=== PATIENT | male | born 1940 | race Caucasian/White ===

== ENCOUNTER 2019-06-15 09:57 | Observation (INO) | payer MEDICARE ==
[2019-06-12 12:19] LABS: BASOPHILS # (AUTO) 0.1 (0.0-0.1); BASOPHILS % 0.5 % (0.0-1.0); EOSINOPHILS # (AUTO) 0.4 (0.0-0.4); EOSINOPHILS % 3.6 % (0.0-6.0); HEMATOCRIT 41.5 % (38.2-49.6); HEMOGLOBIN 13.5 g/dL (14.0-18.0); LYMPHOCYTES # (AUTO) 1.9 (1.0-3.2); LYMPHOCYTES % 18.4 % (18.0-39.1); MEAN CORPUSCULAR HEMOGLOBIN 28.5 pg (28-32); MEAN CORPUSCULAR HGB CONC 32.5 g/dL (31-35); MEAN CORPUSCULAR VOLUME 87.6 fL (81-99); NEUTROPHILS # (AUTO) 6.9 (2.1-6.9); NEUTROPHILS % 67.2 % (38.7-80.0); PLATELET COUNT 229 x10e3/uL (140-360); RED BLOOD COUNT 4.74 x10e6/uL (4.3-5.7); RED CELL DISTRIBUTION WIDTH 12.9 % (11.7-14.4)
[2019-06-12 12:36] LABS: INR 0.92; PROTHROMBIN TIME 12.8 seconds (11.9-14.5)
[2019-06-12 12:37] LABS: PARTIAL THROMBOPLASTIN TIME 30.5 seconds (23.8-35.5)
[2019-06-12 12:43] LABS: ALANINE AMINOTRANSFERASE 20 IU/L (0-55); ALBUMIN 3.7 g/dL (3.5-5.0); ALBUMIN/GLOBULIN RATIO 1.2 (0.8-2.0); ALKALINE PHOSPHATASE 128 IU/L (40-150); ANION GAP 14.3 mmol/L (8-16); BLOOD UREA NITROGEN 20 mg/dL (7-26); BUN/CREATININE RATIO 22 (6-25); CALCIUM 10.1 mg/dL (8.4-10.2); CARBON DIOXIDE 27 mmol/L (22-29); CHLORIDE 104 mmol/L (98-107); CREATININE, SERUM 0.93 mg/dL (0.72-1.25); EST GLOMERULAR FILTRATION RATE > 60 ML/MIN (60-); GLUCOSE 90 mg/dL (74-118); POTASSIUM 4.3 mmol/L (3.5-5.1); SODIUM 141 mmol/L (136-145)
--- NOTE | 2019-06-12 14:54 | Diagnostic Imaging Report ---
EXAMINATION: CHEST 2 VIEWS INDICATION: Pre-operative COMPARISON: None FINDINGS: LINES/TUBES:None LUNGS:The lungs are well-inflated. No focal consolidation or pulmonary edema. PLEURA:No pleural effusion or pneumothorax. MEDIASTINUM:The cardiomediastinal silhouette appears normal in size and shape. BONES/SOFT TISSUES:No acute osseous injury. Sternotomy wires intact. Degenerative changes of the visualized spine. ABDOMEN:No free air under the diaphragm. IMPRESSION: No focal pneumonia or pulmonary edema. Signed by: Sneha Sharpe MD on 06/12/2019 2:50 PM
[~2019-06-15] VITALS: Ht 177.8 cm; Wt 88.0 kg
[~2019-06-15 09:57] MED LIST: ASPIRIN81 MG PO; ATORVASTATIN CA20 MG PO; FLOMAX0.4 MG PO; GARLIC1 EAC1 PO; LEVOTHYROXINE50 MCG PO; LISINOPRIL2.5 MG PO; MAGNESIUM GLUCO30 MG PO; MULTI-VITAMIN1 EACH PO; POTASSIUM99 MG PO
--- OUTSIDE RECORDS SUMMARY | 2019-06-15 09:59 | XMS REPORT ---
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 Allergies, Adverse Reactions, Alerts This patient has no known allergies or adverse reactions. Medications This patient has no known medications. Results Test Description Test Time Test Comments Text Results Atomic Results Result Comments CHEST 2 VIEWS 2019-06-12 14:49:00 [place] [address] Patient Name: ANTHONY KNAPP MR #: [id number] : 1940 Age/Sex: 78/M Req #: [id number] [facility] Physician: Ordered by: EMMY CHAVEZ MD Report #: [id number] Location: OR Room/Bed: Procedure: [id number] DX/CHEST 2 VIEWS Exam Date: 06/12/19 Exam Time: 1245 REPORT STATUS: Signed EXAMINATION: CHEST 2 VIEWS INDICATION: Pre-operative COMPARISON: None FINDINGS: LINES/TUBES:None LUNGS:The lungs are well-inflated. No focal consolidation or pulmonary edema. PLEURA:No pleural effusion or pneumothorax. MEDIASTINUM:The cardiomediastinal silhouette appears normal in size and shape. BONES/SOFT TISSUES:No acute osseous injury. Sternotomy wires intact. Degenerative changes of the visualized spine. ABDOMEN:No free air under the diaphragm. IMPRESSION: No focal pneumonia or pulmonary edema. Signed by: Wilfredo Sharpe MD on 06/12/2019 2:50 PM Dictated By: WILFREDO SHARPE MD 145 Transcribed By: JAMES on 06/12/191449 COPY TO: EMMY CHAVEZ MD
--- OUTSIDE RECORDS SUMMARY | 2019-06-15 10:00 | XMS REPORT ---
Author Author Admin, [place] Organization Unknown Address Unknown Phone Unavailable PROBLEMS Condition Status Date Provider Notes Preoperative exam active [place] Yazidism [place] Coronary arteriosclerosis active [place] [facility] [place] Hydrocele, left active Ch[place]wuemeapril [facility] [place] Bladder cancer, trigone active [place] [facility] [place] Knee pain, chronic active Selma Ge Reza Strain of muscle and tendon of front wall of thorax, initial encounter active Roger Krnathi Vaccine against flu/influenza completed - Alvaromita Kranthi Rotator cuff tear, right active Madhumita Kranthi irreapairable BPH (benign prostatic hypertrophy) active [place] [facility] [place] Shoulder joint pain, right active Madhumita Kranthi injury 15 years ago, tore muscle and cannot use the joint BMI 25.0-25.9 active Madhumita Kranthi Passive smoke exposure active Madhumita Kranthi Overweight active Rosmery Efe Paridavid Prostate Cancer, Screening completed - Alvaromita Kranthi Actinic keratosis active Rosmery Efe Pariani Vaccination for strep pneumonia with Prevnar 13 completed - Alvaromita Kranthi Leukocytosis active Rosmery Efe Pariani Abnormal urine finding completed - Rosmery Efe Pariani Tinnitus active Rosmery Efe Pariani Poor dentition active Rosmery Efe Pariani Colon Cancer Screening completed - Roger Crisostomo Flu vaccine completed - Alvaromita Kranthi Nocturia active Rosmerybrandon Wilks Sherrydavid ~ q hr CAD S/P CABG active Rosmery Efe Pariani 2 3 v Screening for glaucoma active Rosmery Keyish Silviano Lower urinary tract symptoms - male active Rosmery Efe Powellani 09/08 IPPS=25 Preventive health care completed - Nolana Kranthi Hypothyroidism active Billie Angelica Hypercholesterolemia active Billie Angelica HTN (Hypertension) active Billiebrandon Dominguez ENCOUNTERS Date Type Provider Location Encounter Diagnosis - Ambulatory Encounter Xenia Roblesabdelmar [facility] [place] [facility] Encounter Xenia Guo [place] [facility] [place] [facility] UNK - Ambulatory Encounter Xenia Roblesabuicaden Guo [place] [facility] UNK - Ambulatory Encounter Xenia Roblesabuicaden Roblesabuife [facility] UNK - Ambulatory Encounter Donna [place] Xenia Guo [place] Nel Bailey [facility] BPH (benign prostatic hypertrophy)Preoperative exam - Ambulatory Encounter Janessa Mcmillan [facility] UNK - [facility] Bladder cancer, trigoneHydrocele, leftCoronary arteriosclerosis - Ambulatory Encounter [place] [facility] - Ambulatory Encounter [place] [facility] UNK - Ambulatory Encounter [place] [facility] UNK - Ambulatory Encounter Selma Luma Reza Selma Luma Reza [facility] UNK - Ambulatory Encounter Selma Luma Reza Selma Luma Reza [facility] UNK - Ambulatory Encounter Fax Status [facility] UNK - Ambulatory Encounter [facility] - Ambulatory Encounter Fax Status [facility] UNK - Ambulatory Encounter Selma Luma Reza Selma Luma Reza Karina Alfred [facility] UNK - Ambulatory Encounter Selma Luma Reza Selma Luma Reza [facility] UNK - Ambulatory Encounter [facility] - Ambulatory Encounter [facility] - Ambulatory Encounter Fax Status [facility] UNK - Ambulatory Encounter Selma Luma Reza Selma Luma Reza [facility] UNK - Ambulatory Encounter Selma Luma Reza [facility] [facility], [facility] - Ambulatory Encounter Selma Luma Reza [facility] Lilly Juddto [facility] UNK - Ambulatory Encounter Madhumita Kranthi Madhumita Kranthi [facility] UNK - Ambulatory Encounter Madhumita Kranthi Rajeshhumita Kranthi [facility] UNK - Ambulatory Encounter Madhumita Kranthi Rajeshhumita Kranthi [facility] UNK - Ambulatory Encounter Madhumita Kranthi Madhumita Kranthi Carmen Chou [facility] UNK - Ambulatory Encounter Karina Majorkins [facility] UNK - Ambulatory Encounter Madhumita Kranthi Madhumita Kranthi [facility] UNK - Ambulatory Encounter Madhumita Kranthi Madhumita Kranthi [facility] UNK - Ambulatory Encounter Madhumita Kranthi Madhumita Kranthi Tianna Snow [facility] Preventive health careFlu vaccineColon Cancer ScreeningVaccination for strep pneumonia with Prevnar 13Prostate Cancer, ScreeningVaccine against flu/influenzaStrain of muscle and tendon of front wall of thorax, initial encounter - Ambulatory Encounter Fax Status [facility] UNK - Ambulatory Encounter Fax Status [facility] UNK - Ambulatory Encounter Fax Status [facility] UNK - Ambulatory Encounter Madhumita Kranthi Madhumita Kranthi Yoly Zavala Selma Luma Reza Selma Luma Reza Nash Valdez [facility] UNK - Ambulatory Encounter Madhumita Kranthi Madhumita Kranthi [facility] UNK - Ambulatory Encounter Madhumita Kranthi Madhumita Kranthi [facility] UNK - Ambulatory Encounter Madhumita Kranthi Madhumita Kranthi [facility] UNK - Ambulatory Encounter Madhumita Kranthi Madhumita Kranthi Brenda Chou [facility] Vaccine against flu/influenza - Ambulatory Encounter Karina Chapman [facility] UNK - Ambulatory Encounter Ana M Chapman Madhumita Kranthi Madhumita Kranthi [facility] UNK - [facility]ulatory [facility] - [facility] En[facility] - Ambulatory Encounter Madhumita Kranthi Madhumita Kranthi Yumiko Quinn [facility] UNK - Ambulatory Encounter Madhumita Kranthi Madhumita Kranthi Cotton [facility] UNK - Ambulatory Encounter Karina Chapman [facility] UNK - Ambulatory Encounter Jacki ColladoAdherdina [facility] UNK - Ambulatory Encounter Madhumita Kranthi Madhumita Kranthi [facility] UNK - Ambulatory Encounter Jacki Pierce Med[facility]herence [facility] UNK - Ambulatory Encounter Yumiko Campos MedAdherence [place] Yazidism [place] Williamkwuedarien Guo [place] [facility] UNK - Ambulatory Encounter Yumiko Dumont [facility] UNK - Ambulatory Encounter Madhumita Kranthi Madettamita Kranthi [facility] UNK - Ambulatory Encounter Fax Status [facility] UNK - Ambulatory Encounter Madhumita Kranthi Alvaromita Kranthi [facility] UNK - Ambulatory Encounter Madhumita Kranthi Madhumita Kranthi [facility] UNK - Ambulatory Encounter Fax Status [facility] UNK - Ambulatory Encounter Fax Status [facility] UNK - Ambulatory Encounter Fax Status [facility] UNK - Ambulatory Encounter Jacki Pierce MedAdherence [facility] UNK - Ambulatory Encounter Madhumita Kranthi Madhumita Kranthi [facility] UNK - Ambulatory Encounter Fax Status [facility] UNK - Ambulatory Encounter Fax Status [facility] UNK - Ambulatory Encounter Fax Status [facility] UNK - Ambulatory Encounter Madhumita Kranthi Alvaromita Kranthi [facility] Rotator cuff tear, right - Ambulatory Encounter Alvaromitbrandon Crisostomo Alvaromita Kranthi [facility] UNK - Ambulatory Encounter Roger Crisostomo Alvaromita Kranthi Yoly Khoury [facility] UNK - Ambulatory Encounter Karina Chapman [facility] UNK - Ambulatory Encounter Jacki Pierce MedAdherence [facility] UNK - Ambulatory Encounter Jacki Pierce MedAdherence [facility] UNK - Ambulatory Encounter [facility] - [facility] En[facility] - Ambulatory Encounter Rajeshelda Kranthi Alvaromita Kranthi [facility] UNK - Ambulatory Encounter Roger Crisostomo Alvaromita Kranthi Khoury [facility] Passive smoke exposureBMI 25.0-25.9Shoulder joint pain, rightBPH (benign prostatic hypertrophy) - Ambulatory Encounter Rosmery Efe Pariani [facility] Efe [facility] - Ambulatory Encounter Alvaromita Kranthi Alvaromita Kranthi [facility] UNK - Ambulatory Encounter Billie Johnmita Kranthi [facility] UNK - Ambulatory Encounter Karina Chapman [facility] UNK - Ambulatory Encounter Fax Status [facility] UNK - Ambulatory Encounter Fax Status [facility] UNK - Ambulatory Encounter Fax Status [facility] UNK - Ambulatory Encounter Rosmery Efe Pariani Rosmery Efe Silviano LinkLogjenifer Crisostomo [facility] UNK - Ambulatory Encounter Fax Status [facility] UNK - Ambulatory Encounter Fax Status [facility] UNK - Ambulatory Encounter Fax Status [facility] UNK - Ambulatory Encounter Fax Status [facility] UNK - Ambulatory Encounter Fax Status [facility] UNK - Ambulatory Encounter Fax Status [facility] UNK - Ambulatory Encounter Rosmery Efe Pariani Rosmery Efe Shore [facility] UNK - Ambulatory Encounter Rosmery Efe Pariani Rosmery Efe Paridavid [facility] UNK - Ambulatory Encounter Solisbrandon Ragsdale [facility] UNK - Ambulatory Encounter Solis Ragsdale [facility] UNK - Ambulatory Encounter Rosmery Efe Pariani Rosmery Efe Pariani Yumiko Khoury [facility] Abnormal urine findingLeukocytosisVaccination for strep pneumonia with Prevnar 13Actinic keratosisProstate Cancer, ScreeningOverweight - Ambulatory Encounter Rosmery Efe Pariani Rosmery Efe Pariani [facility] UNK - Ambulatory Encounter Rosmery Efe Pariani Rosmery Efe Pariani [facility] UNK - Ambulatory Encounter Rosmery Efe Pariani Rosmery Efe Pariani [facility] UNK - Ambulatory Encounter Zoilamaico Werner [facility] UNK - Ambulatory Encounter Rosmery Efe Pariani Rosmery Efe Pariani [facility] UNK - Ambulatory Encounter Rosmery Efe Pariani Rosmery Efe Pariani [facility] UNK - Ambulatory Encounter Rosmery Efe Pariani Rosmery Efe Pariani [facility] UNK - Ambulatory Encounter Fax Status [facility] UNK - Ambulatory Encounter Fax Status [facility] UNK - Ambulatory Encounter Fax Status [facility] UNK - Ambulatory Encounter Fax Status [facility] UNK - Ambulatory Encounter Fax Status [facility] UNK - Ambulatory Encounter Fax Status [facility] UNK - Ambulatory Encounter Fax Status [facility] UNK - Ambulatory Encounter Fax Status [facility] UNK - Ambulatory Encounter Fax Status [facility] UNK - Ambulatory Encounter Rosmery Efe Pariani Rosmery Efe Pariani Gisselle Perry [facility] Abnormal urine finding - Ambulatory Encounter Rosmery Morales [facility] - Ambulatory Encounter Rosmery [facility] - Ambulatory Encounter Rosmery Shore Yumiko Khoury [facility] HTN (Hypertension)HypercholesterolemiaHypothyroidismPreventive health careLower urinary tract symptoms - maleScreening for glaucomaCAD S/P CABGNocturiaFlu vaccineColon Cancer ScreeningPoor dentitionTinnitus - Ambulatory Encounter Betina [facility] - Ambulatory Encounter Betinamel [facility] - Ambulatory Encounter Janessa [facility] VITAL SIGNS No Information Available Allergies No Known Allergy Information REASON FOR REFERRAL Start Date - End Date Service - Urology - External - Orthopedics - External - Cardiology - External RESULTS Date Observation Value Provider Reference Range Interpretation Location thyroid stimulating hormone, serum 4.290 u[iU]/mL [facility] 0.450-4.500 " calcium, serum 9.1 mg/dL [facility] 8.6-10.2 " carbon dioxide, venous blood 25 mmol/L [facility] 20-29 " chloride, serum 101 mmol/L [facility] 96-106 " potassium, serum 4.0 mmol/L [facility] 3.5-5.2 " sodium, serum 139 mmol/L [facility] 134-144 " urea nitrogen/creatinine ratio, serum 23 [facility] 10-24 " eGFR if 93 mL/min/((173/100).m2) [facility] >59 " Estimated Glomerular Filtration Rate (calc) 81 mL/min/((173/100).m2) [facility] >59 " creatinine, serum 0.92 mg/dL [facility] 0.76-1.27 " urea nitrogen, blood 21 mg/dL [facility] 8-27 " blood glucose, random 101 mg/dL [facility] 65-99 High thyroxine, serum, free 0.95 ng/dL [facility] 0.82-1.77 " thyroid stimulating hormone, serum 6.890 u[iU]/mL [facility] 0.450-4.500 High " prostate specific antigen 2.2 ng/mL [facility] 0.0-4.0 " immature granulocytes, percentage of total cells, blood 0 % [facility] Not Estab. " basophil count, absolute 0.0 x10E3/uL [facility] 0.0-0.2 " Eosinophil Absolute Count 0.5 X10E3/UL [facility] 0.0-0.4 High " monocyte count, blood, automated 1.2 X10E3/UL [facility] 0.1-0.9 High " lymphocyte count, blood, automated 2.4 X10E3/UL [facility] 0.7-3.1 " Absolute Neutrophils 6.4 X10E3/UL [facility] 1.4-7.0 " basophils as percent of blood leukocytes 0 % [facility] Not Estab. " eosinophils as percent of blood leukocytes 5 % [facility] Not Estab. " monocytes as percent of blood leukocytes 11 % [facility] Not Estab. " lymphocytes as percent of blood leukocytes 23 % [facility] Not Estab. " neutrophils as percent of blood leukocytes 61 % [facility] Not Estab. " platelet count 231 X10E3/UL [facility] 150-379 " red blood cell distribution width 14.1 % [facility] 12.3-15.4 " mean corpuscular hemoglobin concentration, RBC 33.6 G/DL [facility] 31.5-35.7 " mean corpuscular hemoglobin, RBC 28.5 pg [facility] 26.6-33.0 " mean corpuscular volume, RBC 85 fL [facility] 79-97 " hematocrit, blood 43.1 % [facility] 37.5-51.0 " hemoglobin, blood 14.5 g/dL [facility] 13.0-17.7 " erythrocyte (RBC) count 5.08 X10E6/UL [facility] 4.14-5.80 " leukocyte count, blood 10.6 X10E3/UL [facility] 3.4-10.8 thyroid stimulating hormone, serum 4.470 u[iU]/mL [facility] 0.450-4.500 " LDL cholesterol, serum 99 mg/dL [facility] 0-99 " very low density lipoproteins 30 mg/dL [facility] 5-40 " HDL cholesterol, serum 34 mg/dL [facility] >39 Low " triglyceride, serum, fasting 150 mg/dL [facility] 0-149 High " cholesterol, serum 163 mg/dL [facility] 100-199 " alanine aminotransferase (SGPT), serum 17 1/L [facility] 0-44 " aspartate aminotransferase (SGOT), serum 14 1/L [facility] 0-40 " alkaline phosphatase, serum 87 1/L [facility] 39-117 " bilirubin, serum, total 0.3 mg/dL [facility] 0.0-1.2 " albumin/globulin ratio, serum 1.8 [facility] 1.2-2.2 " globulin, serum 2.3 [facility] 1.5-4.5 " albumin, serum 4.1 g/dL [facility] 3.5-4.8 " protein, total, serum 6.4 g/dL [facility] 6.0-8.5 " calcium, serum 9.3 mg/dL [facility] 8.6-10.2 " carbon dioxide, venous blood 25 mmol/L [facility] 18-29 " chloride, serum 99 mmol/L [facility] 96-106 " potassium, serum 4.6 mmol/L [facility] 3.5-5.2 " sodium, serum 139 mmol/L [facility] 134-144 " urea nitrogen/creatinine ratio, serum 23 [facility] 10-24 " eGFR if 95 mL/min/((173/100).m2) [facility] >59 " Estimated Glomerular Filtration Rate (calc) 82 mL/min/((173/100).m2) [facility] >59 " creatinine, serum 0.91 mg/dL [facility] 0.76-1.27 " urea nitrogen, blood 21 mg/dL [facility] 8-27 " blood glucose, random 85 mg/dL [facility] 65-99 " immature granulocytes, percentage of total cells, blood 0 % [facility] Not Estab. " basophil count, absolute 0.0 x10E3/uL [facility] 0.0-0.2 " Eosinophil Absolute Count 0.5 X10E3/UL [facility] 0.0-0.4 High " monocyte count, blood, automated 1.5 X10E3/UL [facility] 0.1-0.9 High " lymphocyte count, blood, automated 2.5 X10E3/UL [facility] 0.7-3.1 " Absolute Neutrophils 7.3 X10E3/UL [facility] 1.4-7.0 High " basophils as percent of blood leukocytes 0 % [facility] Not Estab. " eosinophils as percent of blood leukocytes 4 % [facility] Not Estab. " monocytes as percent of blood leukocytes 13 % [facility] Not Estab. " lymphocytes as percent of blood leukocytes 21 % [facility] Not Estab. " neutrophils as percent of blood leukocytes 62 % [facility] Not Estab. " platelet count 271 X10E3/UL [facility] 150-379 " red blood cell distribution width 13.9 % [facility] 12.3-15.4 " mean corpuscular hemoglobin concentration, RBC 33.8 G/DL [facility] 31.5-35.7 " mean corpuscular hemoglobin, RBC 28.9 pg [facility] 26.6-33.0 " mean corpuscular volume, RBC 86 fL [facility] 79-97 " hematocrit, blood 39.7 % [facility] 37.5-51.0 " hemoglobin, blood 13.4 g/dL [facility] 13.0-17.7 " erythrocyte (RBC) count 4.64 X10E6/UL [facility] 4.14-5.80 " leukocyte count, blood 11.8 X10E3/UL [facility] 3.4-10.8 High urine culture LESS [facility] " bacteria, urine microscopy Few [facility] None seen/Few " mucus on urinalysis Present [facility] Not Estab. " epithelial cells, urine None seen [facility] 0 - 10 " RBC, Urine 0-2 /hpf [facility] 0 - 2 " WBC urine on microscopy 0-5 /hpf [facility] 0 - 5 " urinalysis, microscopic examination See below: [facility] " nitrate, urine Negative [facility] Negative " urobilinogen, urine, semiquantitative (dipstick) 0.2 [facility] 0.2-1.0 " bilirubin, urine Negative [facility] Negative " ketones, urine, by test strip Negative [facility] Negative " glucose, urine, semiquantitative Negative [facility] Negative " protein, urine, semiquantitative (dipstick) Negative [facility] Negative/Trace " leukocyte esterase, urine, by dipstick 2+ [facility] Negative Abnormal " appearance, urine Clear [facility] Clear " urine color Yellow [facility] Yellow " pH, urine, semiquantitative 6.5 [facility] 5.0-7.5 " specific gravity, body fluid 1.015 [facility] 1.005-1.030 pH, urine, semiquantitative 5.5 Carmen Perry " specific gravity, urine 1.015 Carmen Perry " glucose, urine, semiquantitative negative Carmen Perry " bilirubin, urine negative Carmen Haddads " ketones, urine, by test strip negative Carmen Perry " blood in urine (hemoglobin) by dipstick negative Carmen Haddads " protein, urine, semiquantitative (dipstick) negative Carmen Perry " urobilinogen, urine, semiquantitative (dipstick) negative Carmen Haddads " nitrite, urine, semiquantitative negative Carmen Perry " leukocyte esterase, urine, by dipstick trace Carmen Perry " appearance, urine clear Carmen Perry " urine color yellow Carmen Haddads PSA (prostate specific antigent), recommendation and action 09/15/17 Last digital prostate exam in 2004. Has hx of enlarged prostate in which symptoms seem to be worsening. He would like referral to Urology. Billie Dominguez HISTORY OF IMMUNIZATIONS No Information Available HISTORY OF MEDICATION USE Medication Instructions Dates Provider Comments TIZANIDINE HCL 2 MG ORAL TABLET take 1 tab By Mouth Three Times a Day As Needed muscle spasm Madelda Crisostomo LISINOPRIL 10 MG ORAL TABLET 1 by mouth every day Roger Crisostomo LOSARTAN POTASSIUM 25 MG ORAL TABLET 1 tab By Mouth daily - Rgoer Crisostomo ASPIRIN 81 MG ORAL TABLET take 1 tab By Mouth Every day Rosmery Shore TAMSULOSIN HCL 0.4 MG ORAL CAPSULE take 1 tablet By Mouth Every day for prostate Roger Crisostomo GARLIC TABLET Take one tab By Mouth Every Day Billie Dominguez MULTIVITAMIN MEN ORAL TABLET Take one tab By Mouth Every Day Billie Dominguez VITAMIN D (CHOLECALCIFEROL) CAPSULE Take one cap By Mouth Every Day Billie Dominguez LEVOTHYROXINE 0.025MG TAB TAKE 1 TABLET BY MOUTH EVERY DAY FOR HYPOTHYROIDISM Jacki Stan MedAdherence SIMVASTATIN 10 MG ORAL TABLET Take one tab By Mouth Every Day for cholesterol Billie Dominguez LISINOPRIL 5 MG ORAL TABLET Take one tab By Mouth Every Day for blood pressure. - Roger Crisostomo SOCIAL HISTORY Date Observation Value Provider drug use, illicit Never Nel Bailey " alcohol use Previously Nel Bailey " social history E&M Single. No children. 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 Never been . Not homeless. Born in [facility]. City: [place]. Lives alone in home. Not employed. Retired since 2010. Highest education level: some college. 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 Sex at : Male. Sexual orientation: Heterosexual. Gender identity: Male. Sexually Active: Yes. Denies recent falls or fear of falling. Normal gait w/o assistive device. Feels safe in home. Still drives. Denies memory problems. Denies incontinence. Feels able to manage own affairs. Independent w/ all ADLs & IADLs. Building things Nel Bailey " social history reviewed E&M reviewed today Nel Bailey " sexual orientation Heterosexual Nel Bailey " assessment of health literacy ([employer] [facility] 2014 Standards, 3C10) Adequate Nel Bailey " passive cigarette smoke exposure No Nel Bailey " smoking status never smoker Nel Bailey " Exercise Program Referral T Nel Bailey " Weight Management Counseling Provided T Nel Bailey " Nutrition intervention T Nel Ragsdale Leo time of call 05/30/2019 2:01 PM Rickey Mcmillan social history E&M Single. No children. 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 Never been . Not homeless. Born in [facility]. City: [facility]. Lives alone in home. Not employed. Retired since 2010. Highest education level: some college. 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 Sex at : Male. Sexual orientation: Heterosexual. Gender identity: Male. Sexually Active: Yes. Denies recent falls or fear of falling. Normal gait w/o assistive device. Feels safe in home. Still drives. Denies memory problems. Denies incontinence. Feels able to manage own affairs. Independent w/ all ADLs & IADLs. Building things Nash Valdez " social history reviewed E&M reviewed today Nash Valdez " sexual orientation Heterosexual Nash Valdez " is there any chance that you could be ? No Nash Valdez " assessment of health literacy ([facility] 2014 Standards, 3C10) Adequate Nash Valdez " passive cigarette smoke exposure No Nash Valdez " smoking status never smoker Nash Valdez " Exercise Program Referral T Nash Valdez " Weight Management Counseling Provided Lion Valdez " Nutrition intervention Lion Valdez social history E&M Single. No children. 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 Never been . Not homeless. Born in [facility]. City: [facility]. Lives alone in home. Not employed. Retired since 2010. Highest education level: some college. 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 Sex at : Male. Sexual orientation: Heterosexual. Gender identity: Male. Sexually Active: Yes. Denies recent falls or fear of falling. Normal gait w/o assistive device. Feels safe in home. Still drives. Denies memory problems. Denies incontinence. Feels able to manage own affairs. Independent w/ all ADLs & IADLs. Building things Carmen Chou " social history reviewed E&M reviewed today Carmen Chou " sexual orientation Heterosexual Carmen Chou " assessment of health literacy ([facility] 2014 Standards, 3C10) Adequate Carmen Chou " passive cigarette smoke exposure No Carmen Sainzvez " smoking status never smoker Carmen Tapiaz " Exercise Program Referral T Carmen Chou " Weight Management Counseling Provided T Carmen Chou " Nutrition intervention T Carmen Chou drug use, illicit Never Tianna Snow " alcohol use Previously Tianna Snow " social history E&M Single. No children. 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 Never been . Not homeless. Born in [facility]. City: [facility]. Lives alone in home. Not employed. Retired since 2010. Highest education level: some college. 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 Sex at : Male. Sexual orientation: Heterosexual. Gender identity: Male. Sexually Active: Yes. Denies recent falls or fear of falling. Normal gait w/o assistive device. Feels safe in home. Still drives. Denies memory problems. Denies incontinence. Feels able to manage own affairs. Independent w/ all ADLs & IADLs. Building things Tianna Snow " social history reviewed E&M reviewed today Tianna Snow " sexual orientation Heterosexual Tianna Snow " assessment of health literacy ([facility] 2014 Standards, 3C10) Adequate Tianna Snow " passive cigarette smoke exposure No Tianna Snow " smoking status never smoker Tianna Snow " Exercise Program Referral T Tianna Snow " Weight Management Counseling Provided T Tianna Snow " Nutrition intervention T Tianna Edy Exercise Program Referral T Carmen José Antonio " Weight Management Counseling Provided T Carmen Chou " Nutrition intervention T Carmen José Antonio " social history E&M Single. No children. 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 Never been . Not homeless. Born in [facility]. City: [facility]. Lives alone in home. Not employed. Retired since 2010. Highest education level: some college. 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 Sex at : Male. Sexual orientation: Heterosexual. Gender identity: Male. Sexually Active: Yes. Denies recent falls or fear of falling. Normal gait w/o assistive device. Feels safe in home. Still drives. Denies memory problems. Denies incontinence. Feels able to manage own affairs. Independent w/ all ADLs & IADLs. Building things Carmen Chou " social history reviewed E&M reviewed today Carmen Chou " passive cigarette smoke exposure No Carmen Chou " smoking status never smoker Carmen José Antonio " assessment of health literacy ([facility] 2014 Standards, 3C10) Adequate Carmen Chou " sexual orientation Heterosexual Carmen Chou time of call 10/09/2018 3:23 PM Samuel Mcwilliams social history E&M Single. No children. 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 Never been . Not homeless. Born in [facility]. City: [facility]. Lives alone in home. Not employed. Retired since 2010. Highest education level: some college. 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 Sex at : Male. Sexual orientation: Heterosexual. Gender identity: Male. Sexually Active: Yes. Denies recent falls or fear of falling. Normal gait w/o assistive device. Feels safe in home. Still drives. Denies memory problems. Denies incontinence. Feels able to manage own affairs. Independent w/ all ADLs & IADLs. Building things Carmen Chou " social history reviewed E&M reviewed today Carmen Chou " sexual orientation Heterosexual Carmen Tapiaz " assessment of health literacy ([facility] 2014 Standards, 3C10) Adequate Carmen Chou " passive cigarette smoke exposure No Carmen Chou " smoking status never smoker Carmen Chou " Exercise Program Referral Lion Chou " Weight Management Counseling Provided Lion Chou " Nutrition intervention Lion Chou social history E&M Single. No children. 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 Never been . Not homeless. Born in [facility]. City: [facility]. Lives alone in home. Not employed. Retired since 2010. Highest education level: some college. 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 Sex at : Male. Sexual orientation: Heterosexual. Gender identity: Male. Sexually Active: Yes. Denies recent falls or fear of falling. Normal gait w/o assistive device. Feels safe in home. Still drives. Denies memory problems. Denies incontinence. Feels able to manage own affairs. Independent w/ all ADLs & IADLs. Building things Carmen Chou " social history reviewed E&M reviewed today Carmen Chou " sexual orientation Heterosexual Carmen Chou " passive cigarette smoke exposure Yes Carmen Chou" assessment of health literacy ([facility] 2014 Standards, 3C10) Adequate Carmen Chou " smoking status never smoker Carmen Chou " Exercise Program Referral T Carmen Chou " Weight Management Counseling Provided T Carmen Chou " Nutrition intervention Lion Chou drug use, illicit Never Carmen Perry " alcohol use Previously Carmen Perry " social history E&M Single. No children. 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 Never been . Not homeless. Born in [facility]. City: [facility]. Lives alone in home. Not employed. Retired since 2010. Highest education level: some college. 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 Sex at : Male. Sexual orientation: Heterosexual. Gender identity: Male. Sexually Active: Yes. Denies recent falls or fear of falling. Normal gait w/o assistive device. Feels safe in home. Still drives. Denies memory problems. Denies incontinence. Feels able to manage own affairs. Independent w/ all ADLs & IADLs. Building things Carmen Perry " social history reviewed E&M reviewed today Carmen Perry " sexual orientation Heterosexual Carmen Perry " passive cigarette smoke exposure No Carmen Perry " smoking status never smoker Carmen Perry " assessment of health literacy ([facility] 2014 Standards, 3C10) Adequate Carmen Perry " Exercise Program Referral T Carmen Perry " Weight Management Counseling Provided T Carmen Perry " Nutrition intervention T Carmen Perry " exercise type walk (4-5 mi) Rosmerybrandon Wilks Sherrydavid " sexual orientation Heterosexual Billie Dominguez " sex at Male Billie Madrigalreaux " patient considered to be homeless No Billie Dominguez " social history - sexual practice Denies recent falls or fear of falling. Normal gait w/o assistive device. Feels safe in home. Still drives. Denies memory problems. Denies incontinence. Feels able to manage own affairs. Independent w/ all ADLs & IADLs. Billie Dominguez " family support No children. 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 Never been . Billie Dominguez " home/family situation, assessment Lives alone in home. Billie Dominguez " passive cigarette smoke exposure No Carmen Perry " social history reviewed E&M reviewed today Carmen Perry " social history E&M Single. No children. 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 Never been . Not homeless. Born in [facility]. City: [facility]. Lives alone in home. Not employed. Retired since 2010. Highest education level: some college. 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 Sex at : Male. Sexual orientation: Heterosexual. Gender identity: Male. Sexually Active: Yes. Denies recent falls or fear of falling. Normal gait w/o assistive device. Feels safe in home. Still drives. Denies memory problems. Denies incontinence. Feels able to manage own affairs. Independent w/ all ADLs & IADLs. Building things Billie Dominguez " Occupation #1 Retired Carmen Perry " drug use, illicit Never Carmen Perry " alcohol use Previously Carmen Perry " smoking status never smoker Carmen Perry " assessment of health literacy ([facility] 2014 Standards, 3C10) Adequate Carmen Perry " Exercise Program Referral T Carmen Perry " Weight Management Counseling Provided Lion Perry " Nutrition intervention Lion Perry FUNCTIONAL STATUS Date Observation Value Provider total score, Activities of Daily Living (ADL) Independent Billie Dominguez " ambulatory status Normal Billie Dominguez MENTAL STATUS Date Observation Value Provider assessment of judgment and insight E&M intact Xenia Quinterouicaden " mental status examination: orientation E&M oriented to time, place, and person Xenia Quinterorejicaden " assessment of mood and affect E&M no depression, anxiety, or agitation Xenia Yazidism Nnabuicaden " Generalized Anxiety Disorder Questionnaire - Question 2 0 Nel Bailey " Generalized Anxiety Disorder Questionnaire - Question 1 0 Nel Bailey mental status examination: orientation E&M oriented to time, place, and person Selma Luma Reza " assessment of mood and affect E&M no depression, anxiety, or agitation Selma Luma Reza " Generalized Anxiety Disorder Questionnaire - Question 2 0 Nash Valdez " Generalized Anxiety Disorder Questionnaire - Question 1 0 Nash Valdez assessment of mood and affect E&M no depression, anxiety, or agitation Madhumita Kranthi " Generalized Anxiety Disorder Questionnaire - Question 2 0 Carmen Chou " Generalized Anxiety Disorder Questionnaire - Question 1 0 Carmen Chou assessment of mood and affect E&M no depression, anxiety, or agitation Madhumita Kranthi " Generalized Anxiety Disorder Questionnaire - Question 2 0 Tianna Snow " Generalized Anxiety Disorder Questionnaire - Question 1 0 Tianna Snow assessment of mood and affect E&M no depression, anxiety, or agitation Madhumita Kranthi " Generalized Anxiety Disorder Questionnaire - Question 2 0 Carmen Chou " Generalized Anxiety Disorder Questionnaire - Question 1 0 Carmen Chou assessment of mood and affect E&M no depression, anxiety, or agitation Madhumita Kranthi " Generalized Anxiety Disorder Questionnaire - Question 2 0 Carmen Chou " Generalized Anxiety Disorder Questionnaire - Question 1 0 Carmen Chou assessment of mood and affect E&M no depression, anxiety, or agitation Madhumita Kranthi " Generalized Anxiety Disorder Questionnaire - Question 2 0 Carmen Chou " Generalized Anxiety Disorder Questionnaire - Question 1 0 Carmen Chou assessment of judgment and insight E&M intact Rosmery Fee Pariani " mental status examination: orientation E&M oriented to time, place, and person Rosmery Efe Pariani " assessment of mood and affect E&M no depression, anxiety, or agitation Rosmery Shore " Generalized Anxiety Disorder Questionnaire - Question 2 0 Carmen Perry " Generalized Anxiety Disorder Questionnaire - Question 1 0 Carmen Perry assessment of judgment and insight E&M intact Rosmery Shore " mental status examination: orientation E&M oriented to time, place, and person Rosmery Shore " assessment of mood and affect E&M no depression, anxiety, or agitation Rosmery Shore " Generalized Anxiety Disorder Questionnaire - Question 2 0 Carmen Perry " Generalized Anxiety Disorder Questionnaire - Question 1 0 Carmen Perry MEDICAL EQUIPMENT No Information Available FAMILY HISTORY No Information Available INSURANCE PROVIDERS No Information Available ADVANCE DIRECTIVES No Information Available TREATMENT PLAN Date Name Basic Metabolic Panel (8) TSH TSH Rfx on Abnormal to Free T4 CBC With Differential/Platelet PSA, Serum (Serial Monitor) Urinalysis (w/micro), Complete Urine Culture, Routine Comp. Metabolic Panel (14) CBC With Differential/Platelet TSH Rfx on Abnormal to Free T4 Lipid Panel - - - - - - - EKG - 12 Leads with Interpretation and Report Est Patient Exp Problem - 39130 Est Patient Detailed - 36697 Est Patient Exp Problem - 63796 Est Patient Exp Problem - 95455 Est Patient Exp Problem - 10438 Fluzone 0.5 ml (Influenza Vacc 3 years plus IM) Admin of Vaccine - Injection - 1 Est Patient Exp Problem - 76072 Est Patient Exp Problem - 49373 Est Patient Detailed - 64567 Prevnar (PCV13) IM Admin of Vaccine - Injection - 1 New Patient Comprehensive - 79448 Dental - Internal INFLUENZA VACCINE QUADRIVALENT 3 YRS PLUS IM Admin of Vaccine - Injection - 1 Urinalysis - Dip only - In House HISTORY OF PROCEDURES Procedure Date Procedure Name Provider Procedure Notes Status EKG - 12 Leads with Interpretation and Report Donna Robertson completed Urinalysis - Dip only - In House Rosmery Shore completed GOALS No Information Available HEALTH CONCERNS No Information Available
[2019-06-15] MEDS ORDERED: CEFOXITIN 1GM/ D5W 50ML 50 ML IV ONE (10:23)
[2019-06-15] MEDS ORDERED: LIDOCAINE HCL 2% LOCAL INJ 5 ML SDV VIAL INJ ONE (14:02)
[2019-06-15] MEDS ORDERED: DEXAMETHASONE SOD PHOS INJ 4 MG/ML VIAL ONE (14:02)
[2019-06-15] MEDS ORDERED: PROPOFOL IV EMULSION 10 MG/ML 20 ML VIAL ONE (14:02)
[2019-06-15] MEDS ORDERED: ONDANSETRON HCL INJ 2MG/ML 2ML 2 MG/ML VIAL ONE (14:02)
[2019-06-15] MEDS ORDERED: SEVOFLURANE INHAL SOLN 250 ML PEN BTL ONE (14:02)
[2019-06-15] MEDS ORDERED: MIDAZOLAM HCL 2 MG/2 ML VIAL ONE (14:07)
[2019-06-15] MEDS ORDERED: FENTANYL CITRATE/PF 100MCG/2 ML INJ ONE ×2 (14:07→14:21)
--- NOTE | 2019-06-15 15:20 | NUR ---
ARRIVED VIA STRETCHER FROM PACU, AA&OX3, RA, DENIES PAIN AT THIS TIME, DUMONT TO BSD WITH HERNÁNDEZ COLORED URINE NOTED, SCANT AMOUNT OF BLOODY DRAINAGE NOTED AT DUMONT INSERTION SITE, ORIENTED TO ROOM AND CALL LIGHT SYSTEM, SCD'S CONNECTED TO PUMP, CALL LIGHT WITHIN REACH
--- NOTE | 2019-06-15 15:42 | NUR ---
SPOKE WITH MD OLIVIA , STATES TO HOLD ASPIRIN UNTIL TOMORROW AND LABS IN AM
[2019-06-15 15:50] VITALS: BP 138/83
[2019-06-15 15:54] VITALS: BP 138/83
[2019-06-15 16:47] VITALS: BP 138/83
[2019-06-15] MEDS: DOCUSATE SODIUM 100 MG CAP PO SCH (17:39)
[2019-06-15] MEDS: SODIUM CHLORIDE 0.9% 1000ML 1,000 ML IV SCH (17:39)
[2019-06-15] MEDS ORDERED: CEFOXITIN 1GM/ D5W 50ML 50 ML IV SCH (18:00)
--- NOTE | 2019-06-15 18:07 | NUR ---
PT TOLERATING LIQUIDS AT THIS TIME, CALL LIGHT WITHIN REACH
--- NOTE | 2019-06-15 18:13 | NUR ---
VERIFIED HOME MEDICATIONS WITH PT, EMAR NOTED , PT TAKES ALL MEDICATION AT NIGHT
[2019-06-15] MEDS: CEFOXITIN 1GM/ D5W 50ML 50 ML IV SCH (18:32)
--- NOTE | 2019-06-15 19:30 | Operative Report ---
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 OPERATION PERFORMED: Transurethral resection of bladder tumor 4 to 5 mm. ANESTHESIA: General. INDICATIONS: This patient is a 78-year-old white male, who was sent to see me because he was having severe problems with urination and [employer] is no longer working. During the course of his evaluation, his urinalysis had no blood, but when I did a cystoscopy on him, I saw that he had enlarged middle lobe and had about a 4 to 5 mm tumor in the trigone. The patient subsequently went on to have a CT scan with and without contrast, which revealed bilateral renal cysts. No evidence of hydronephrosis, but he had enlarged prostate and evidence suggestive of a bladder tumor. For further details, please refer to the history and physical. The procedure was done in following fashion. PHYSICAL EXAMINATION: The patient was taken to the operating room, placed under general anesthesia, dressed and draped with Hibiclens in lithotomy position in the usual fashion. The 22-Guyanese Olympus resectoscope was inserted with the 30 degree oblique lens and visual obturator. The sphincter and verumontanum were intact. Middle lobe of the prostate was greatly enlarged, making it difficult to see the ureteral orifices. A 4 to 5 mm bladder tumor was seen near the left ureteral orifices in the trigone, which was initially obscured by the middle lobe. There also appeared to be a somewhat suspicious looking area just lateral to the trigone on the left side. The right side of the trigone actually did not involve tumor. The tumor was more in the left side of the trigone and there was some suspicious looking areas just lateral to the trigone, which were identified. My next step was to use the wire loop. The cutting was set on 80 and the coagulation set on 80. The tumor was 1st resected and the area was fulgurated with electrocautery to stop the bleeding. Then, a similar procedure was done on this area just lateral to the trigone on the left side. The specimens were evacuated using an Ellik and the bladder was again inspected for hemostasis. When hemostasis seemed to be good, resectoscope was withdrawn. I then inserted a 22-Guyanese Davis catheter to gravity drainage. My plan at this time is to monitor the patient overnight with a Davis catheter to gravity drainage and remove the Davis catheter in the morning for trial of voiding. Dr. Daron Koroma is being consulted for medical management in view of his past cardiac history. Austen Morrison MD SRA/MODL /[id number]
[2019-06-15 19:55] VITALS: BP 139/81
[2019-06-15 20:00] VITALS: BP 139/81
[2019-06-15] MEDS: HYDROCODONE/APAP 7.5MG-325MG 1 EA TAB PO PRN (20:34)
[2019-06-15 21:00] VITALS: BP 139/81
[2019-06-15] MEDS ORDERED: ATORVASTATIN 20 MG TAB PO SCH (21:00)
[2019-06-15] MEDS ORDERED: HOME MEDICATION--PATIENTS OWN PO SCH ×2 (21:00)
[2019-06-15] MEDS ORDERED: TAMSULOSIN HCL 0.4 MG CAP PO SCH (21:00)
[2019-06-15] MEDS ORDERED: MAGNESIUM OXIDE 400 MG TAB PO SCH (21:00)
[2019-06-15] MEDS ORDERED: LISINOPRIL 2.5 MG TAB PO SCH (21:00)
[2019-06-15] MEDS ORDERED: ATORVASTATIN 40 MG TAB PO SCH (21:00)
[2019-06-15] MEDS ORDERED: MULTIVITAMINS/MINERALS TAB PO SCH (21:00)
[2019-06-16] VITALS: BP 118/73
[2019-06-16] MEDS: SODIUM CHLORIDE 0.9% 1000ML 1,000 ML IV SCH ×3 (00:50→09:17)
[2019-06-16] MEDS: CEFOXITIN 1GM/ D5W 50ML 50 ML IV SCH ×3 (00:50→12:37)
[2019-06-16] MEDS ORDERED: LEVOTHYROXINE SODIUM 50 MCG TAB PO SCH ×2 (03:00→06:00)
[2019-06-16 04:00] VITALS: BP 105/63
--- NOTE | 2019-06-16 06:00 | NUR ---
Medical Consultation Requesting physician: Reason for consult; med mgmt cc: prostate ds HPI: 78yoM, no PCP, admitted to hospital by for elective TURBT. Pt did well, now recovering; Pain minimal. PMH: BPH, nocturia, bladder cancer, left hydrocele, cholelithiasis, DDD, hypothyroidism, HTN, HLD, CAD s/p CABG, PSHx: cystoscopy, CABG, tonsillectomy, right shoulder joint, Allergies; see emr FH/SH; breast CA in mother, PA in father/brother, single; no cigs; occ etoh meds; see MAR ROS: no f/c/s/N/V/D/TYSON/cp/sob/f/c/s/skin rash/back pain v/s; revd PE tired appearing anicteric ns1s2 mod bs soft nt nd no e/t skin dry n. affect a&ox3; spence labs/meds; revd A/P:78yoM Prostate cancer- s/p TURBT BPH- flomax Hypothyroidism- cont synthroid HTN- continue home meds HLD- check lipids Overweight- screen for DM BMI 27.8- as above CAD - resume home meds Prop: scd DIspo; d/c planning; Daron Koroma MD, PhD
[2019-06-16 06:05] LABS: BASOPHILS % 0.1 % (0.0-1.0); HEMATOCRIT 37.6 % (38.2-49.6); HEMOGLOBIN 12.2 g/dL (14.0-18.0); LYMPHOCYTES # (AUTO) 1.5 (1.0-3.2); LYMPHOCYTES % 10.1 % (18.0-39.1); MEAN CORPUSCULAR HEMOGLOBIN 28.4 pg (28-32); MEAN CORPUSCULAR HGB CONC 32.4 g/dL (31-35); MEAN CORPUSCULAR VOLUME 87.4 fL (81-99); MONOCYTES % 6.6 % (4.4-11.3); NEUTROPHILS # (AUTO) 12.1 (2.1-6.9); NEUTROPHILS % 82.7 % (38.7-80.0); PLATELET COUNT 218 x10e3/uL (140-360); RED CELL DISTRIBUTION WIDTH 12.7 % (11.7-14.4)
[2019-06-16 06:28] LABS: ANION GAP 9.7 mmol/L (8-16); BLOOD UREA NITROGEN 13 mg/dL (7-26); BUN/CREATININE RATIO 19 (6-25); CARBON DIOXIDE 19 mmol/L (22-29); CHLORIDE 114 mmol/L (98-107); CREATININE, SERUM 0.67 mg/dL (0.72-1.25); EST GLOMERULAR FILTRATION RATE > 60 ML/MIN (60-); GLUCOSE 94 mg/dL (74-118); POTASSIUM 3.7 mmol/L (3.5-5.1); SODIUM 139 mmol/L (136-145)
[2019-06-16 06:50] LABS: CHOL/HDL RATIO 4.1 (3.9-4.7)
[2019-06-16] MEDS: HYDROCODONE/APAP 7.5MG-325MG 1 EA TAB PO PRN (07:04)
[2019-06-16 08:25] VITALS: BP 113/56
[2019-06-16] MEDS ORDERED: MULTIVITAMINS/MINERALS TAB PO SCH (09:00)
[2019-06-16] MEDS ORDERED: GARLIC PO SCH (09:00)
[2019-06-16] MEDS ORDERED: LISINOPRIL 2.5 MG TAB PO SCH (09:00)
[2019-06-16] MEDS ORDERED: MAGNESIUM GLUCONATE 500 MG PO SCH (09:00)
[2019-06-16] MEDS ORDERED: ASPIRIN 81 MG CHEW TAB PO SCH ×2 (09:00→21:00)
[2019-06-16] MEDS ORDERED: TAMSULOSIN HCL 0.4 MG CAP PO SCH (09:00)
[2019-06-16] MEDS ORDERED: (Potassium 99 MG) PO SCH (09:00)
[2019-06-16] MEDS ORDERED: MAGNESIUM OXIDE 400 MG TAB PO SCH (09:00)
--- NOTE | 2019-06-16 09:15 | NUR ---
DUMONT REMOVED PER MD ORDER, 200ML YELLOW URINE EMPTIED, WITH STANDBY ASSIST, PT OOB TO BS CHAIR, CALL LIGHT WITHIN REACH, PT TOLERATING CLEARS AT THIS TIME
[2019-06-16] MEDS: DOCUSATE SODIUM 100 MG CAP PO SCH (09:17)
[2019-06-16 09:19] VITALS: BP 113/56
[2019-06-16 12:42] VITALS: BP 104/69
--- NOTE | 2019-06-16 13:19 | NUR ---
SITTING IN BS CHAIR, TOLERATING PO, VOIDED X 1, MD CHAVEZ INTO SEE PT, DISCUSSED DISCHARGE INSTRUCTIONS, PT VERBALIZED UNDERSTANDING
[2019-06-16] MEDS ORDERED: MACROBID 100 M100 MG PO (13:27)
--- NOTE | 2019-06-16 15:14 | NUR ---
DISCHARGE INSTRUCTIONS REVIEWED WITH PT, PT VERBALIZED UNDERSTANDING, AWAITING RIDE FOR DISCHARGE
--- NOTE | 2019-06-16 16:10 | Progress Note ---
DATE: 06/16/2019 Discharge Progress Note SUBJECTIVE: The patient is now one day status post transurethral resection of bladder tumor. The final pathology reports are pending. The Davis catheter was removed this morning for trial of voiding. The patient has voided clear colored urine. The patient feels good and wants to go home. He is eating and breathing without difficulty and eating without difficulty. PLAN: My plan at this time is to discharge the patient on Macrobid 100 mg p.o. twice daily, #14 and he will have a return appointment to see me again in two weeks to go over the results of the pathology. Austen Morrison MD BRYANT/MODL /[id number] cc: Austen Morrison MD
== END 2019-06-16 16:30 | disposition home or self-care (01) ==
LOC: OR 09:57 → PACU V 14:21 → MED/SURG 15:20
PROVIDERS: ADMIT Urology; ATTEND Urology
DX: D30.3 Benign neoplasm of bladder (principal); I25.10 Atherosclerotic heart disease of native coronary artery without angina pectoris; I10 Essential (primary) hypertension; E03.9 Hypothyroidism, unspecified; E78.00 Pure hypercholesterolemia, unspecified; N40.1 Benign prostatic hyperplasia with lower urinary tract symptoms; R39.12 Poor urinary stream; R35.1 Nocturia; K64.4 Residual hemorrhoidal skin tags; K21.9 Gastro-esophageal reflux disease without esophagitis; N43.41 Spermatocele of epididymis, single; R19.5 Other fecal abnormalities; Z86.010 Personal history of colon polyps; Z95.1 Presence of aortocoronary bypass graft; Z01.810 Encounter for preprocedural cardiovascular examination; Z01.812 Encounter for preprocedural laboratory examination; Z01.811 Encounter for preprocedural respiratory examination; Z80.3 Family history of malignant neoplasm of breast; Z82.49 Family history of ischemic heart disease and other diseases of the circulatory system; E78.5 Hyperlipidemia, unspecified; E66.3 Overweight; Z68.27 Body mass index [BMI] 27.0-27.9, adult
CPT/HCPCS: 36415 ×3; 52235; 71046; 80048; 80053; 80061; 82948; 83036; 85025 ×2; 85610; 85730; 88305; 93005; C1726; G0378 ×2; J1100; J2001; J2250; J2405; J2704; J3010; J7030 ×2